=== PATIENT | female | born 1990 | race Caucasian/White ===

== ENCOUNTER 2017-10-06 13:36 | Inpatient (IN) ==
[2017-10-06] MEDS ORDERED: Oxytocin 20 units/ LR 1000 mL 20 UNIT/1,000 ML BAG IVC ONE (13:50)
[2017-10-06] MEDS ORDERED: Naloxone 0.4 MG/ML INJ IVP PRN ×3 (13:50→20:11)
[2017-10-06] MEDS ORDERED: Famotidine 20 MG/2 ML VIAL IVP ONE (13:50)
[2017-10-06] MEDS ORDERED: Metoclopramide 10 MG/2 ML VIAL IVP ONE (13:50)
[2017-10-06] MEDS ORDERED: Ringers Solution, Lactated 1,000 ML IVC ONE (13:50)
[2017-10-06] MEDS ORDERED: Ondansetron 4 MG/2 ML VIAL IVP PRN ×2 (13:50→20:11)
[2017-10-06] MEDS ORDERED: CeFAZolin Premix DUPLEX 2,000 MG/50 ML BAG IVPB ONE (13:50)
[2017-10-06] MEDS ORDERED: Ringers Solution, Lactated 1,000 ML IVC SCH ×3 (14:00→20:11)
[2017-10-06] MEDS ORDERED: Oxytocin 20 units/ LR 1000 mL 20 UNIT/1,000 ML BAG IVC SCH ×3 (14:00→20:11)
[2017-10-06 15:52] LABS: Hematocrit 41.6 % (35.3-44.9); Hemoglobin 13.3 g/dL (11.5-15.4); Mean Corpuscular Hemoglobin 25.7 pg (28.0-33.3); Mean Corpuscular Volume 80.5 fL (83.0-100.0); Red Blood Count 5.17 M/mcL (3.82-4.97)
[2017-10-06 15:53] LABS: Basophils % 0.2 %; Eosinophils # 0.1 K/mcL (0.0-0.6); Eosinophils % 0.5 %; Immature Granulocytes % 0.2 % (0-4); Lymphocytes # 1.5 K/mcL (0.6-4.6); Lymphocytes % 16.1 %; Mean Platelet Volume 10.4 fL (9.4-12.4); Monocytes # 0.7 K/mcL (0.0-1.3); Monocytes % 7.4 %; Neutrophils # 7.1 K/mcL (1.6-8.9); Platelet Count 352 K/mcL (140-400); Red Cell Distribution Width 21.5 % (11.5-14.5); Segmented Neutrophils % 75.6 %
[2017-10-06 15:58] LABS: Amphetamine Screen,Urine Negative ng/mL (Cutoff=1000); Barbiturate Screen,Urine Negative ng/mL (Cutoff=200); Benzodiazepines Screen,Urine Negative ng/mL (Cutoff=200); Cannabinoid Screen,Urine Negative ng/mL (Cutoff = 50); Cocaine Screen,Urine Negative ng/mL (Cutoff= 300); Opiate Screen,Urine Negative ng/mL (Cutoff=300); Phencyclidine Screen,Urine Negative ng/mL (Cutoff=25)
--- NOTE | 2017-10-06 16:11 | OB/GYN History & Physical ---
Date of Encounter: 10/06/17 Time of Encounter: 16:00 Assessment and Plan (1) and not yet delivered in third trimester Current visit: Yes Status: Acute (2) 37 weeks gestation of Current visit: Yes Status: Acute (3) Previous section complicating Current visit: Yes Status: Acute Patient will be prepared for a repeat low transverse section (4) Active labor at term Current visit: Yes Status: Acute History of Present Illness HPI: Ms. Swanson is a 27 year old female 2 para 1 at 37-3/7 weeks who presented from the office secondary to active labor. Patient is a previous section was in the office for an ultrasound for growth and stated had been valdez all week and I see in the last week and she was 1 cm today in the office she was 3-4 80 and -1 station patient was also noted to have an COLE of 21 and the baby weighed 3305 g because she was a previous section and has documented cervical change and is valdez every 2-3 minutes section will be performed today. She denies any leaking of fluid no vaginal bleeding. Patient is A positive, rubella negative, GBS negative, Varicella nagative Past Med Surg Social Fam HX - Past Medical History Source: patient, old records reviewed Medical history: no medical history Psychiatric history: no psych history - Past Surgical History Surgical History: Additional surgical history: DENTAL EXTRACTION; section - Social History Smoking Status: Never smoker Smokeless Tobacco Status: No Alcohol use: none Drug use: none Occupational status: employed Current living situation: Home - Independent Activity Level: Independent ambulation Recent Out of Country Travel Within the Last 8 Weeks: No Exposure or Possible Exposure to Illness During Travel: No - Family History Mother Living Status: Still Living Hx Family Cardiac Disorders: No Hx Family Respiratory Disorders: No Hx Family Cancer: No Hx Family GI Disorders: No Hx Family Genitourinary Disorders: No Hx Family Endocrine Disorder: No Hx Family Musculoskeletal Disorders: No Hx Family Neuromuscular Disorders: No Hx Family Neurologic Disorders: No Hx Family HEENT Disorders: No Hx Family Autoimmune Disorders: No Hx Family Reproductive Disorders: No Hx Family Psychosocial Disorders: No Hx Family Medical Disorders: No - Additional Family History Additional family history: Family history noncontributory Obstetrical History - Pregnancies : 2 Para: 1 Livin Medications and Allergies Ferrous Sulfate [Iron] 1 / PO DAILY 10/06/17 [History] Pnv95/Ferrous Fumarate/FA [ Vitamin Tablet] 325 mg PO BID 10/06/17 [ History] 3 Allergy/AdvReac Type Severity Reaction Status Date / Time No Known Allergies Allergy Verified 07/10/16 15:53 Review of System OB All systems PM: reviewed and no additional remarkable complaints except as stated Exam - Constitutional Constitutional: well developed, well nourished, mild distress - HEENT HEENT: EOMI, PERRL, Mucus Membranes Moist - Neck Neck exam: full ROM - Lungs Respiratory exam: CTAB - Cardiovascular Cardiovascular exam: RRR - Abdomen Abdomen: Present: bowel sounds normal, gravid - Cervix Dilation: 4 Effacement: 80 Station: -1 ( heart tones 140s reactive contractions every 2 minutes) Results Result Diagrams: 10/06/17 14:33 Abnormal lab results RBC 5.17 M/mcL (3.82-4.97) H 10/06/17 14:33 MCV 80.5 fL (83.0-100.0) L 10/06/17 14:33 MCH 25.7 pg (28.0-33.3) L 10/06/17 14:33 RDW 21.5 % (11.5-14.5) H 10/06/17 14:33 All other labs normal.
--- NOTE | 2017-10-06 16:18 | Anesthesia Evaluation PreOp ---
Date of Encounter: 10/06/17 Time of Encounter: 16:10 - Past History Planned Operation: repeat csection with spinal Cardiac History: Denies any Significant Hx Pulmonary History: Denies Any Significant HX ORCHID HAND History: Denies Any Significant HX Other Medical History: GERD Anesthesia History: No Prior Anesthetic Complications, Past Anesthesia ( previous csection, T&A) : Yes Alcohol Use: none Drug use: none Medications and Allergies Ferrous Sulfate [Iron] 1 / PO DAILY 10/06/17 [History] Pnv95/Ferrous Fumarate/FA [ Vitamin Tablet] 325 mg PO BID 10/06/17 [ History] 3 Allergy/AdvReac Type Severity Reaction Status Date / Time No Known Allergies Allergy Verified 07/10/16 15:53 - Meds/Allergy Pre-op Review Medications Reviewed: Yes Allergies Reviewed: Yes Beta Blockers on Current Med List: No Anesthesia Results - Labs 10/06/17 14:33 Anesthesia Exam BP 112/74 P 77 R 16 T 98.7 Height: 5'3" Weight: 88.5kg NPO (# of Hours): 19hrs Pain Scale: 0 Pain Scale Used: Numeric (1 - 10) - HEENT Pupil (Motor): Pupils equal Mallampati: II Teeth: Normal Oral Opening: Greater than 3 - ORCHID HAND LOC: Oriented ORCHID HAND Motor: Normal RUE, Normal LUE, Normal RLE, Normal LLE, Normal Face ORCHID HAND Sensory: Normal: RUE, LUE, RLE, LLE, Face - Cardiac Rhythm: Regular Murmur: None JVD: No Carotid Bruit: No - Pulmonary Breath Sounds: bilateral Clear Respiratory Effort: Symmetrical Anesthesia Assess/Plan ASA Score: 2 Modified Ruma Scale for Level of Consciousness: Cooperative, oriented, and tranquil Anesthetic Plan: Regional Autologous Blood: No Monitoring Plan: Standard Monitors Recovery Plan: PACU
[2017-10-06] MEDS ORDERED: *HR* OxyCODONE Immed Rel 5 MG TABLET PO PRN (16:19)
[2017-10-06] MEDS ORDERED: Acetaminophen IV 1,000 MG/100 ML INFUS..BTL IVPB ONE (16:19)
[2017-10-06] MEDS ORDERED: *HR* Promethazine 25 MG/ML VIAL IVP PRN (16:19)
[2017-10-06] MEDS ORDERED: Ondansetron 4 MG/2 ML VIAL IVP ONE (16:19)
[2017-10-06] MEDS ORDERED: *HR* Meperidine 25 MG/ML SYRINGE IVP PRN (16:19)
[2017-10-06] MEDS ORDERED: Bupivacaine/PF 0.75% in Dex 2 ML AMPUL INFILT ONE (16:23)
[2017-10-06] MEDS ORDERED: Lidocaine -MPF 1% 5 ML AMPUL ONE (16:24)
[2017-10-06] MEDS ORDERED: Morphine Sulfate/PF 5mg/10mL Vial ONE (16:27)
[2017-10-06] MEDS ORDERED: EPHEDrine 50 MG/ML VIAL ONE (16:52)
[2017-10-06] MEDS ORDERED: Ondansetron 4 MG/2 ML VIAL ONE (16:53)
[2017-10-06] MEDS ORDERED: Dexamethasone 4 MG/ML VIAL ONE (16:53)
--- NOTE | 2017-10-06 17:02 | Anesthesia Procedures ---
Date of Encounter: 10/06/17 Time of Encounter: 16:46 Procedures: Anesthesia - Epidural/Spinal Patient ID/Chart reviewed: Yes Patient examined: Yes OB Eval: Gestational age: 37 OB Eval: : 2 OB Eval: Hx Para: 1 OB Eval: Contractions: Non-stressed pattern Consent Obtained: Yes Supplemental Oxygen: None/Room Air Site Prep: Aseptic Technique, Sterile prep and drape, Povidone-Iodine 1% Patient position: upright Local Anesthetic: Lidocaine 1% Amount of Local Anesthetic used: 3 Interspace Used: L3-L4 Loss of Resistance (SARAH): No Blood: No CSF: Yes Paresthesia: No Spinal Needle Gauge: 25 Spinal Dose: Bupivicaine 0.75% 1.6ml morphine 250mcg Procedure: Intrathecal dose administered in upright position 1st pass without any immediate noted complications. VSS throughout. Supine for Csection procedure. Vitals + FHT's: See anesthesia record
--- NOTE | 2017-10-06 17:53 | OB/GYN Procedure Note ---
Section - Date of procedure: 10/06/17 Preop diagnosis: other (Intrauterine at 37-3/7 weeks, previous section, active labor) Post-op diagnosis: same Procedure: repeat low transverse Surgeon: Abad Davis Blood Loss: 500 Was there an retail assistant store manager present: No Air Hammer Stripper: Roberto Santana Anesthesia Type: Spinal section complications: none Disposition: L&D Recovery Room - Infant (s) A Infant Delivery Date: 10/06/17 Infant Delivery Time: 17:09 Presentation: vertex Position: ROSENDA Route of delivery: other ( section) Gender: Male Viability: Viable Pounds: 7 Ounces: 6 Gram Weight: 3.345 kg at 1 minute: 7 at 5 minutes: 8 Shoulder Dystocia: not encountered Specimens collected: cord blood Placenta: spontaneous Cord: nuchal cord, nuchal reduced - Narrative Narrative: Patient is a 27-year-old 2 para 1 at 37-3/7 weeks who presented from the office in active labor. Patient was being seen for routine visit with ultrasound for growth she states that she been having contractions all weekend. Patient was seen within the last week was noted to be 1 cm and 80% patient in the office was 3-4 cm 80% and -1 station ultrasound showed amniotic fluid index of 21 cm and the head could be disengaged out of the pelvis because she had made cervical change in approximately 4 days from 1-4 cm and was valdez every 2 minutes she was sent to labor and delivery for repeat section. She denies any leaking of fluid. Procedure: Patient was taken to the operating room where spinal anesthesia was found to be adequate. She is placed in the dorsal supine position with leftward tilt prepped and draped in usual fashion. Timeout was then obtained. A Pfannenstiel incision was made with a scalpel and carried down to the underlying tissue to fascia was identified. The fascia was nicked in midline and extended laterally with the [place] scissors. The superior and inferior edges of the fascia grasped tented up dissected off the rectus muscles. Rectus muscles were in the midline parietal peritoneum was identified tented up and entered sharply. This is extended superiorly and inferiorly with Metzenbaum scissors. The bladder blade was inserted the vesicouterine peritoneum was identified tented up and entered sharply. This was extended laterally and bladder flap was created digitally. The lower uterine segment was incised with a scalpel and extended laterally with digital manipulation. Membranes ruptured clear fluid was encountered. The infant's head was delivered there was a nuchal cord 1 loose and reduced. The was fully delivered large amounts of clear fluid was then expressed after the baby was delivered the cord was clamped and cut and infant was handed off to waiting pediatric team. Cord blood was not needed at this time the placenta was then delivered spontaneously with a three-vessel cord. The uterus is exteriorized cleaned of all clots and debris then the lower uterine segment was closed using a 0 Vicryl in a running locking stitch by a 2 layer closure. Good hemostasis was noted. The uterus was then returned to the abdomen the gutters were cleaned of all clots and debris with no active bleeding. The fascia was then closed using a #1 stratafix in a running stitch and the skin was closed using a 4-0 Vicryl in a subcuticular manner. All needles lap and sponge counts were correct 3 she did receive preoperative antibiotics. Patient will be observed one hour before being taken to the floor.
[2017-10-06] MEDS ORDERED: Metoclopramide 10 MG/2 ML VIAL IVP PRN (20:11)
[2017-10-06] MEDS ORDERED: Simethicone 80 MG TAB.CHEW PO PRN (20:11)
[2017-10-06] MEDS ORDERED: Sennosides 8.6 MG TABLET PO PRN (20:11)
--- NOTE | 2017-10-06 20:47 | Anesthesia Evaluation Post Op ---
Date of Encounter: 10/06/17 Time of Encounter: 18:00 - Vital Signs Vital Signs: Vital Signs Temperature 98.3 F 10/06/17 19:45 Pulse Rate 75 10/06/17 19:45 Respiratory Rate 14 10/06/17 19:45 Blood Pressure 133/76 10/06/17 19:45 O2 Sat by Pulse Oximetry 98 10/06/17 19:45 Temperature 97.7 F 10/06/17 20:15 Pulse Rate 76 10/06/17 20:15 Respiratory Rate 14 10/06/17 20:15 Blood Pressure 130/69 10/06/17 20:15 O2 Sat by Pulse Oximetry 97 10/06/17 20:15 - Lungs Lungs: Clear Ascult./Percussion - Airway Airway: Non-obstructed - Cardiovascular Regular Rate - Mental Status Mental Status: Alert & Oriented, Answers Appropriately - Pain Pain Scale: 1 Pain Scale used: Numeric (1 - 10) (1) - Nausea Vomiting Nausea Vomiting: Not Present - Hydration Hydration: NPO, Zhong catheter - Discharge PostOp Status: Transfer Patient to floor
[2017-10-07] MEDS: Ibuprofen 600 MG TABLET PO PRN ×3 (04:57→20:38)
[2017-10-07] MEDS: *HR* OxyCODONE/APAP 5/325 TABLET PO PRN ×4 (04:57→20:25)
[2017-10-07 05:19] LABS: Basophils % 0.2 %; Eosinophils % 0.1 %; Hematocrit 33.5 % (35.3-44.9); Immature Granulocytes % 0.5 % (0-4); Mean Corpuscular HGB Conc 31.6 g/dL (31.6-35.5); Mean Corpuscular Hemoglobin 25.6 pg (28.0-33.3); Mean Corpuscular Volume 80.9 fL (83.0-100.0); Monocytes # 1.2 K/mcL (0.0-1.3); Monocytes % 7.8 %; Neutrophils # 11.9 K/mcL (1.6-8.9); Platelet Count 296 K/mcL (140-400); Red Blood Count 4.14 M/mcL (3.82-4.97); Segmented Neutrophils % 78.4 %
[2017-10-07 05:21] LABS: Hemoglobin 10.6 g/dL (11.5-15.4)
--- NOTE | 2017-10-07 08:34 | OB/GYN Progress Note ---
Date of Encounter: 10/07/17 Time of Encounter: 08:31 - Assessment and Plan (1) delivery delivered Current Visit: Yes Status: Acute Continue routine postop/ care anticipate discharge home tomorrow (2) Breast feeding status of mother Current Visit: Yes Status: Acute support prn Subjective - Subjective Principal diagnosis: status postop day 1 repeat c/s Interval history: Patient is postop day 1 repeat c/s. Patient denies any pain at this time. Patient has not been up to void yet but states she will when she finishing pumping. Patient reports: appetite normal, pain well controlled, ambulating normally : doing well, in NICU Objective - Vital Signs Latest vital signs: Vital Signs Temp Pulse Resp BP Pulse Ox 10/07/17 05:00 98.1 F 74 14 127/74 97 10/07/17 01:25 98.5 F 77 14 131/76 98 10/06/17 22:40 98.1 F 74 14 132/70 98 10/06/17 21:45 97.9 F 79 14 121/70 97 10/06/17 20:45 97.7 F 76 14 126/76 97 10/06/17 20:15 97.7 F 76 14 130/69 97 10/06/17 19:45 98.3 F 75 14 133/76 98 Intake and Output 10/06/17 10/07/17 10/07/17 23:59 07:59 15:59 Output Total 275 / 275 1050 / 1050 Balance -275 / -275 -1050 / -1050 Output: Straight Cath 275 / 275 Catheter 1050 / 1050 Other: Weight 88.1 kg - Exam Lungs: bilateral: normal Chest: Normal S1, Normal S2 Extremities: Present: normal Abdomen: Present: normal appearance, soft Incision: Present: normal, dry, intact Uterus: Present: normal, firm Fundal Height: 1 (U/1) - Labs Labs: Laboratory Results - last 24 hr 10/06/17 10/06/17 10/07/17 14:33 14:33 04:38 WBC 9.4 15.2 H D RBC 5.17 H 4.14 Hgb 13.3 10.6 L D Hct 41.6 33.5 L MCV 80.5 L 80.9 L MCH 25.7 L 25.6 L MCHC 32.0 31.6 RDW 21.5 H 21.0 H Plt Count 352 296 MPV 10.4 10.0 Immature Gran % 0.2 0.5 Seg Neutrophils % 75.6 78.4 Lymphocytes % 16.1 13.0 Monocytes % 7.4 7.8 Eosinophils % 0.5 0.1 Basophils % 0.2 0.2 Neutrophils # 7.1 11.9 H Lymphocytes # 1.5 2.0 Monocytes # 0.7 1.2 Eosinophils # 0.1 0.0 Basophils # 0.0 0.0 Urine Opiates Screen Negative Ur Barbiturates Screen Negative Ur Phencyclidine Scrn Negative Ur Amphetamines Screen Negative U Benzodiazepines Scrn Negative Urine Cocaine Screen Negative U Marijuana (THC) Screen Negative
[2017-10-07] MEDS: Prenatal Vit/FA 1 EACH TABLET PO SCH (08:37)
[2017-10-08] MEDS: Ibuprofen 600 MG TABLET PO PRN ×2 (02:09→08:57)
[2017-10-08] MEDS: *HR* OxyCODONE/APAP 5/325 TABLET PO PRN ×2 (02:09→08:57)
[2017-10-08] MEDS: Prenatal Vit/FA 1 EACH TABLET PO SCH (08:57)
[2017-10-08 09:07] VITALS: BP 111/72
--- NOTE | 2017-10-08 10:33 | Discharge Summary ---
Date of Encounter: 10/08/17 Time of Encounter: 10:32 - Discharge Diagnosis (1) Breast feeding status of mother Priority: Secondary Status: Acute Comments: Rx breastpump (2) delivery delivered Priority: Primary Status: Acute Comments: Pt meeting all post-op milestones. She is requesting discharge home today. - Discharge Medications Prescriptions: OxyCODONE/APAP 5/325 [Percocet 5/325 MG] 1 each PO Q4HR PRN 5 Days #30 tablet PRN Reason: Moderate pain 4-6 Ibuprofen [Motrin] 600 mg PO Q6HR PRN #60 tablet PRN Reason: Cramping Docusate [Colace] 100 mg PO BID #60 capsule Home Medications: Pnv95/Ferrous Fumarate/FA [ Vitamin Tablet] 325 mg PO BID 10/06/17 [ History] Docusate [Colace] 100 mg PO BID #60 capsule 10/08/17 [Rx] Ibuprofen [Motrin] 600 mg PO Q6HR PRN #60 tablet 10/08/17 [Rx] Naloxone [Narcan] 0.4 mg IVP Q2MIN PRN inj 10/08/17 [Rx] OxyCODONE/APAP 5/325 [Percocet 5/325 MG] 1 each PO Q4HR PRN 5 Days #30 tablet [Rx] Simethicone [Gas-X] 80 mg PO TID PRN tab.chew 10/08/17 [Rx] Allergies/Adverse Reactions: 3 Allergy/AdvReac Type Severity Reaction Status Date / Time No Known Allergies Allergy Verified 07/10/16 15:53 Data Procedures and tests throughout hospitalization: Laboratory Tests 10/06/17 10/06/17 10/07/17 14:33 14:33 04:38 WBC 9.4 15.2 H D RBC 5.17 H 4.14 Hgb 13.3 10.6 L D Hct 41.6 33.5 L MCV 80.5 L 80.9 L MCH 25.7 L 25.6 L MCHC 32.0 31.6 RDW 21.5 H 21.0 H Plt Count 352 296 MPV 10.4 10.0 Immature Gran % 0.2 0.5 Seg Neutrophils % 75.6 78.4 Lymphocytes % 16.1 13.0 Monocytes % 7.4 7.8 Eosinophils % 0.5 0.1 Basophils % 0.2 0.2 Neutrophils # 7.1 11.9 H Lymphocytes # 1.5 2.0 Monocytes # 0.7 1.2 Eosinophils # 0.1 0.0 Basophils # 0.0 0.0 Urine Opiates Screen Negative Ur Barbiturates Screen Negative Ur Phencyclidine Scrn Negative Ur Amphetamines Screen Negative U Benzodiazepines Scrn Negative Urine Cocaine Screen Negative U Marijuana (THC) Screen Negative Date of admission: 10/06/17 13:36 Primary care physician: Melissa Darnell CNP Consults: 10/07/17 07:30 Consult to Machine Buffer (W&C) [CONS] Routine Reason For Exam: Reason for SW Consult: Needs car seat. Pt has one year old at home. Questionable if pt can read or not. Discharging clinician: Sandra Martinez Anticipated date of discharge: 10/08/17 - Patient Status Disposition: Home, Self-Care Condition: Good Functional capacity at discharge: independent ambulation Overall status at discharge: patient is progressing back to baseline - Discharge Instructions Follow Up With: Melissa Darnell CNP [Primary Care Provider] - Abad Wen DO [Partnered Physician] - - Diet and Activity Activity: increase activity as tolerated Diet: regular diet Hospital Course Reason for admission: active labor, section Delivery: section Episiotomy: none Laceration: none Other procedures: none complications: none Discharge diagnosis: IUP at term delivered baby: male Hospital course: - Date of procedure: 10/06/17 Preop diagnosis: other (Intrauterine at 37-3/7 weeks, previous section, active labor) Post-op diagnosis: same Procedure: repeat low transverse Surgeon: Abad Wen Quantitated Blood Loss: 500 Was there an magistrate assistant present: Kavya Air Brush Artist: Roberto Santana Anesthesia Type: Spinal section complications: none Disposition: L&D Recovery Room - Infant (s) Infant A Infant Delivery Date: 10/06/17 Infant Delivery Time: 17:09 Presentation: vertex Position: ROSENDA Route of delivery: other ( section) Gender: Male Viability: Viable Pounds: 7 Ounces: 6 Gram Weight: 3.345 kg at 1 minute: 7 at 5 minutes: 8 Shoulder Dystocia: not encountered Specimens collected: cord blood Placenta: spontaneous Cord: nuchal cord, nuchal reduced Time Attestation: Total time spent providing and/or coordinating discharge services: Time Spent: Less than 30 minutes - VTE Documentation of Mechanical Device: Intermittent pneumatic compression device Exam - Constitutional Vitals: Temp Pulse Resp BP Pulse Ox 97.5 F L 75 16 111/72 99 10/08/17 09:06 10/08/17 09:06 10/08/17 09:06 10/08/17 09:06 10/07/17 19:40 General appearance IM: A&O X 3 - Respiratory Respiratory exam: Present: CTAB - Cardiovascular Cardiovascular exam IM: Present: RRR - GI/Abdominal GI/Abdominal exam IM: soft Incision: normal, dry (dermabond intact), intact - Uterine Tone: Firm - Extremities Exam Extremities exam IM: Present: normal inspection - Neurological Exam Neurological exam: normal gait, oriented X3 - Psychiatric Additional comments: reports good mood
[2017-10-08] MEDS ORDERED: Lanolin 7 G OINT...G. TP PRN (11:03)
== END 2017-10-08 12:45 | disposition home or self-care (01) | DRG 540 ==
LOC: 1NENULAB → OBSVTOIN 13:36 → 1NENULAB 13:50 → 1NENUOBS 20:30
PROVIDERS: ADMIT Obstetrics & Gynecology; ATTEND Obstetrics & Gynecology